=== PATIENT | male | born 1985 | race Hispanic/Latino ===

== ENCOUNTER 2017-06-18 06:51 | Emergency (ER) | payer MEDICAID, OTHER | END 2017-06-18 07:30 | disposition home or self-care (01) | LOC: EDH 06:51 | DX: S30.21XA Contusion of penis, initial encounter (principal); F41.9 Anxiety disorder, unspecified; Z72.0 Tobacco use; X58.XXXA Exposure to other specified factors, initial encounter; Y93.89 Activity, other specified; Y92.89 Other specified places as the place of occurrence of the external cause; Y99.8 Other external cause status | CPT/HCPCS: 99281 ==

== ENCOUNTER 2019-10-26 03:53 | Emergency (ER) | payer SELFPAY | END 2019-10-26 04:57 | disposition home or self-care (01) | LOC: EDH 03:53 | DX: K02.9 Dental caries, unspecified (principal); K08.89 Other specified disorders of teeth and supporting structures; Z88.6 Allergy status to analgesic agent ==